=== PATIENT | female | born 2000 | race Caucasian/White ===

== ENCOUNTER → 2019-07-12 | Outpatient (CLI) | payer BC | END | disposition home or self-care (01) | LOC: LABWHC1 09:16 | PROVIDERS: ATTEND Obstetrics & Gynecology | DX: O20.0 Threatened abortion (principal) | CPT/HCPCS: 36415; 84702; 86850; 86900; 86901 ==

== ENCOUNTER → 2019-07-14 | Outpatient (CLI) | payer BC | END | disposition home or self-care (01) | LOC: LABWHC1 10:01 | PROVIDERS: ATTEND Obstetrics & Gynecology | DX: O20.0 Threatened abortion (principal) | CPT/HCPCS: 36415; 84702 ==

== ENCOUNTER 2019-07-15 21:59 | Emergency (ER) | payer BC ==
[2019-07-15 22:11] VITALS: RESP 18; TEMP 98
[2019-07-15] MEDS ORDERED: ACETAMINOPHEN TAB 500 MG TAB PO STA (22:38)
[2019-07-15 23:16] LABS: Basophils # (A) 0.1 k/uL (0-0.2); Basophils % (A) 0 %; Eosinophils # (A) 0.3 k/uL (0-0.7); Eosinophils % (A) 2 %; HCT 40.9 % (34.0-46.0); HGB 13.6 gm/dL (11.4-16.0); Lymphocytes # (A) 2.7 k/uL (1.0-4.8); Lymphocytes % (A) 17 %; MCHC 33.2 g/dL (31.0-37.0); MCV 93.1 fL (80.0-100.0); Mean Platelet Volume 6.7; Monocytes # (A) 0.6 k/uL (0-1.0); Monocytes % (A) 3 %; Neutrophils # (A) 12.2 k/uL (1.3-7.7); Neutrophils % (A) 76 %; Platelet Count 286 k/uL (150-450); RBC 4.39 m/uL (3.80-5.40); RDW 12.8 % (11.5-15.5)
[2019-07-15 23:25] LABS: ALT 17 U/L (4-34); AST 24 U/L (14-36); African American GFR (CKD) >90 (>60 ml/min/1.73 sqM); Albumin 4.4 g/dL (3.5-5.0); Alkaline Phosphatase 48 U/L (38-126); Anion Gap 8 mmol/L; Blood Urea Nitrogen 14 mg/dL (7-17); Calcium 9.3 mg/dL (8.4-10.2); Carbon Dioxide 20 mmol/L (22-30); Chloride 109 mmol/L (98-107); Glucose 96 mg/dL (74-99); Non-African American GFR(CKD) >90 (>60 ml/min/1.73 sqM); Sodium 137 mmol/L (137-145); Total Bilirubin 0.2 mg/dL (0.2-1.3); Total Protein 7.2 g/dL (6.3-8.2)
[2019-07-15 23:41] LABS: HCG,Quantitative Serum 3339.1 mIU/mL
[2019-07-16 00:03] LABS: Amorphous Sediment,Urine Rare /hpf; Appearance,Urine Turbid (Clear); Bilirubin,Urine Negative (Negative); Blood,Urine Large (Negative); Color,Urine Light Red; Glucose,Urine (UA) Negative (Negative); Ketones,Urine Negative (Negative); Leukocyte Esterase,Urine Trace (Negative); Mucus,Urine Rare /hpf; Nitrite,Urine Negative (Negative); PH, Urine 6.5 (5.0-8.0); Protein,Urine 1+ (Negative); RBC,Urine >182 /hpf (0-5); Specific Gravity,Urine 1.022 (1.001-1.035); Squamous Epithelial Cell,Urine 2 /hpf (0-4); Urobilinogen,Urine <2.0 mg/dL (<2.0); WBC,Urine 37 /hpf (0-5)
--- NOTE | 2019-07-16 00:04 | US ---
EXAMINATION TYPE: Transabdominal DATE OF EXAM: 07/15/2019 11:50 PM COMPARISON: NONE CLINICAL HISTORY: Pelvic pain. Heavy bleeding, passing clots. Had ultrasound at another facility and was told there was no heartbeat. Difficult exam due to patient pain and large amount of peristalsing bowel EXAM PERFORMED: Transvaginal (TV) and Transabdominal (TA) EXAM MEASUREMENTS: GESTATIONAL AGE / DATING Physician Established: Not yet established Dates by LMP: (7 weeks/6 days) EDC: 02/25/2020 Dates by First Scan: No previous this is first scan ( Dates by Current Scan for: No IUP seen at this time MATERNAL ANATOMY Uterus: 8.4 x 4.8 x 5.8 cm Right Ovary: 3.4 x 2.2 x 1.9 cm Left Ovary: 2.1 x 1.2 x 1.0 cm Post CDS / Adnexa: Small amount of free fluid visualized Presence of free fluid: Yes Presence of corpus luteal cyst: Not visualized on this exam GESTATION / SURVEY IUP: No IUP seen at this time Date of LMP: 05/21/2019 Beta HcG (if available): 07/15/2019: 3339 HcG was 9150 on 07/12/2019 No IUP visualized on this exam. Thickened and complex endometrium measuring 2.0 cm with some vascular ity visualized within. Anechoic area visualized within cervix measuring 0.5 cm IMPRESSION: No evidence of intrauterine or extrauterine gestational sac. No adnexal mass. Small cervical cyst. Th ickened endometrium could relate to incomplete .
--- NOTE | 2019-07-16 00:55 | ED ---
General Adult HPI - General Source: patient, RN notes reviewed Mode of arrival: ambulatory <Gianni Ivey - Last Filed: 07/16/19 01:00> <Heather Brasher - Last Filed: 07/17/19 01:00> - General Chief complaint: Vaginal Bleeding Stated complaint: 7 wks , bleeding Time Seen by Provider: 07/15/19 22:11 - History of Present Illness Initial comments: 19-year-old female currently reportedly about 7 weeks presents to the emergency department for a chief complaint of vaginal bleeding. Patient states that she has had some spotting over the past week and did have an ultrasound at her [facility]. She states there was no heartbeat at that could've been from an early ultrasound. Patient states today the bleeding worsened. States she soaked 2 pads. States she has slight cramping but no serious pain. States that she is establishing with Dr. Bloom and saw her nurse but has not actually seen Dr. Bloom as of yet. Patient has no other complaints at this time including shortness of breath, chest pain, abdominal pain, nausea or vomiting, headache, or visual changes. (Gianni Ivey) - Related Data Home Medications Medication Instructions Recorded Confirmed Acetaminophen Tab [Tylenol Tab] 325 mg PO Q6H PRN 07/03/14 07/05/14 Previous Rx's Medication Instructions Recorded Clindamycin HCl [Cleocin] 300 mg PO Q8H #30 cap 07/05/14 Hydrocodone/Acetaminophen [Adolphus 1 - 2 each PO Q6HR PRN #40 tab 07/05/14 5-325] predniSONE [Deltasone] 20 mg PO DAILY #7 tab 07/05/14 Allergies Allergy/AdvReac Type Severity Reaction Status Date / Time amoxicillin Allergy Rash/Hives Verified 07/05/14 08:05 levofloxacin [From Levaquin] Allergy FELT LIKE Verified 07/05/14 08:05 TENDONS WOULD SNAP-SEVERE PAIN sulfamethoxazole Allergy Rash/Hives Verified 07/05/14 08:05 [From Bactrim] trimethoprim [From Bactrim] Allergy Rash/Hives Verified 07/05/14 08:05 Review of Systems ROS Other: All systems not noted in ROS Statement are negative. <Gianni Ivey - Last Filed: 07/16/19 01:00> ROS Other: All systems not noted in ROS Statement are negative. <Heather Brasher A - Last Filed: 07/17/19 01:00> ROS Statement: Those systems with pertinent positive or pertinent negative responses have been documented in the HPI. Past Medical History Past Medical History: Skin Disorder Additional Past Medical History / Comment(s): PT HAS HX MIGRAINES BUT DR. HERNANDEZ. TRYING TO DETERMINE IF HEADACHES ARE SINUS RELATED- HX CHRONIC SINUSITIS, HX ECZEMA - PATCH OFF & ON ARM & LEG History of Any Multi-Drug Resistant Organisms: None Reported Past Surgical History: Tonsillectomy Additional Past Surgical History / Comment(s): EGD @ AGE 3 TO LOOK FOR CLEO SHE SWALLOWED Past Anesthesia/Blood Transfusion Reactions: Motion Sickness Additional Past Anesthesia/Blood Transfusion Reaction / Comment(s): OCCASIONAL MOTION SICKNESS- ONCE ON BOAT AND A FEW TIMES IN CAR WITH LONGER DRIVING DISTANCE Past Psychological History: No Psychological Hx Reported Smoking Status: Current every day smoker Past Alcohol Use History: Occasional Past Drug Use History: Marijuana <Gianni Ivey - Last Filed: 07/16/19 01:00> General Exam General appearance: alert, in no apparent distress Head exam: Present: atraumatic, normocephalic, normal inspection Eye exam: Present: normal appearance, PERRL, EOMI. Absent: scleral icterus, conjunctival injection, periorbital swelling ENT exam: Present: normal exam, mucous membranes moist Neck exam: Present: normal inspection, full ROM. Absent: tenderness, meningismus, lymphadenopathy Respiratory exam: Present: normal lung sounds bilaterally. Absent: respiratory distress, wheezes, rales, rhonchi, stridor Cardiovascular Exam: Present: regular rate, normal rhythm, normal heart sounds. Absent: systolic murmur, diastolic murmur, rubs, gallop, clicks GI/Abdominal exam: Present: soft, normal bowel sounds. Absent: distended, tenderness, guarding, rebound, rigid External exam: Present: normal external exam. Absent: erythema, swelling, lesions, lacerations, ecchymosis Speculum exam: Present: vaginal bleeding, tissue (I was able to remove some ti ssue in the vaginal vault). Absent: normal speculum exam, erythema, vaginal discharge, cervical discharge, foreign body, laceration By manual exam: Absent: cervical motion tenderness, adnexal tenderness, adnexal mass, uterine enlargement, uterine tenderness Neurological exam: Present: alert <Gianni Ivey - Last Filed: 07/16/19 01:00> Course Vital Signs 07/15/19 07/16/19 22:04 01:20 Temperature 98 F Pulse Rate 109 H 74 Respiratory 18 18 Rate Blood Pressure 131/95 112/72 O2 Sat by Pulse 98 100 Oximetry Medical Decision Making - Lab Data Result diagrams: 07/15/19 23:09 07/15/19 23:09 <Gianni Ivey - Last Filed: 07/16/19 01:00> - Lab Data Result diagrams: 07/15/19 23:09 07/15/19 23:09 <AnshuHeather Vidal - Last Filed: 07/17/19 01:00> - Medical Decision Making Vitals are stable. Patient was very anxious on arrival which is likely the cause of her initial tachycardia. His exam did reveal mild vaginal bleeding with some tissue in the vaginal vault that was removed. Abdomen is nontender. CBC did show a white blood cell count of 16.0. CMP unremarkable. Urinalysis shows 182 red blood cells. White blood cells are likely related to red blood cells. Obstetrics ultrasound shows no evidence of intrauterine or extrauterine gestational sac. No adnexal mass. Small cervical cyst. Thickened endometrium could relate to incomplete . Patient states she had an ultrasound about a week ago that did show an intrauterine however no heartbeat. Therefore this is highly consistent with a miscarriage. HCG today is 3300. Ye sterday was 6000. 2 days prior to that was 9000. Blood type is A-, patient was given RhoGAM. On reevaluation patient is much better and bleeding has slowed. I discussed that this is likely a miscarriage however she needs to follow up with [facility] to ensure that her hCG trends to 0 as well as to a she has a completely . At this time patient was given a prescription to repeat blood work in 2 days and follow-up with her [facility]. Discussed returning if she has any worsening symptoms. (Gianni Ivey) I was available for consultation in the emergency department. The history and physical exam were done by the midlevel provider. I was consulted for this patients care. I reviewed the case with the midlevel provider and based on their presentation of the patient, I agree with the assessment, medical decision making and plan of care as documented. Chart was dictated using [employer] dictation software. Attempts were made to correct any dictation errors however some typographical errors may persist. The patient was seen during the [facility] due to the Covid-19 pandemic. (Heather Brasher) - Lab Data Lab Results 07/15/19 07/15/19 07/15/19 Range/Units 23:09 23:09 23:09 WBC 16.0 H (4.0-11.0) k/uL RBC 4.39 (3.80-5.40) m/uL Hgb 13.6 (11.4-16.0) gm/dL Hct 40.9 (34.0-46.0) % MCV 93.1 (80.0-100.0) fL MCH 31.0 (25.0-35.0) pg MCHC 33.2 (31.0-37.0) g/dL RDW 12.8 (11.5-15.5) % Plt Count 286 (150-450) k/uL Neutrophils % 76 % Lymphocytes % 17 % Monocytes % 3 % Eosinophils % 2 % Basophils % 0 % Neutrophils # 12.2 H (1.3-7.7) k/uL Lymphocytes # 2.7 (1.0-4.8) k/uL Monocytes # 0.6 (0-1.0) k/uL Eosinophils # 0.3 (0-0.7) k/uL Basophils # 0.1 (0-0.2) k/uL Sodium 137 (137-145) mmol/L Potassium 4.0 (3.5-5.1) mmol/L Chloride 109 H (98-107) mmol/L Carbon Dioxide 20 L (22-30) mmol/L Anion Gap 8 mmol/L BUN 14 (7-17) mg/dL Creatinine 0.79 (0.52-1.04) mg/dL Est GFR (CKD-EPI)AfAm >90 (>60 ml/min/1.73 sqM) Est GFR (CKD-EPI)NonAf >90 (>60 ml/min/1.73 sqM) Glucose 96 (74-99) mg/dL Calcium 9.3 (8.4-10.2) mg/dL Total Bilirubin 0.2 (0.2-1.3) mg/dL AST 24 (14-36) U/L ALT 17 (4-34) U/L Alkaline Phosphatase 48 (38-126) U/L Total Protein 7.2 (6.3-8.2) g/dL Albumin 4.4 (3.5-5.0) g/dL HCG, Quant 3339.1 mIU/mL Urine Color Urine Appearance (Clear) Urine pH (5.0-8.0) Ur Specific Caldwell (1.001-1.035) Urine Protein (Negative) Urine Glucose (UA) (Negative) Urine Ketones (Negative) Urine Blood (Negative) Urine Nitrite (Negative) Urine Bilirubin (Negative) Urine Urobilinogen (<2.0) mg/dL Ur Leukocyte Esterase (Negative) Urine RBC (0-5) /hpf Urine WBC (0-5) /hpf Ur Squamous Epith Cells (0-4) /hpf Amorphous Sediment (None) /hpf Urine Mucus (None) /hpf Blood Type A Negative Blood Type Recheck A Neg Bld Type Recheck Status No Antibody Screen NEGATIVE Spec Expiration Date 07/18/2019 - 230807/15/19 Range/Units 23:13 WBC (4.0-11.0) k/uL RBC (3.80-5.40) m/uL Hgb (11.4-16.0) gm/dL Hct (34.0-46.0) % MCV (80.0-100.0) fL MCH (25.0-35.0) pg MCHC (31.0-37.0) g/dL RDW (11.5-15.5) % Plt Count (150-450) k/uL Neutrophils % % Lymphocytes % % Monocytes % % Eosinophils % % Basophils % % Neutrophils # (1.3-7.7) k/uL Lymphocytes # (1.0-4.8) k/uL Monocytes # (0-1.0) k/uL Eosinophils # (0-0.7) k/uL Basophils # (0-0.2) k/uL Sodium (137-145) mmol/L Potassium (3.5-5.1) mmol/L Chloride (98-107) mmol/L Carbon Dioxide (22-30) mmol/L Anion Gap mmol/L BUN (7-17) mg/dL Creatinine (0.52-1.04) mg/dL Est GFR (CKD-EPI)AfAm (>60 ml/min/1.73 sqM) Est GFR (CKD-EPI)NonAf (>60 ml/min/1.73 sqM) Glucose (74-99) mg/dL Calcium (8.4-10.2) mg/dL Total Bilirubin (0.2-1.3) mg/dL AST (14-36) U/L ALT (4-34) U/L Alkaline Phosphatase (38-126) U/L Total Protein (6.3-8.2) g/dL Albumin (3.5-5.0) g/dL HCG, Quant mIU/mL Urine Color Light Red Urine Appearance Turbid H (Clear) Urine pH 6.5 (5.0-8.0) Ur Specific [place]dwell 1.022 (1.001-1.035) Urine Protein 1+ H (Negative) Urine Glucose (UA) Negative (Negative) Urine Ketones Negative (Negative) Urine Blood Large H (Negative) Urine Nitrite Negative (Negative) Urine Bilirubin Negative (Negative) Urine Urobilinogen <2.0 (<2.0) mg/dL Ur Leukocyte Esterase Trace H (Negative) Urine RBC >182 H (0-5) /hpf Urine WBC 37 H (0-5) /hpf Ur Squamous Epith Cells 2 (0-4) /hpf Amorphous Sediment Rare H (None) /hpf Urine Mucus Rare H (None) /hpf Blood Type Blood Type Recheck Bld Type Recheck Status Antibody Screen Spec Expiration Date Disposition Is patient prescribed a controlled substance at d/c from ED?: No Time of Disposition: 01:08 <Gianni Ivey P - Last Filed: 07/16/19 01:00> <Heather Brasher - Last Filed: 07/17/19 01:00> Clinical Impression: Incomplete miscarriage Disposition: HOME SELF-CARE Condition: Good Instructions (If sedation given, give patient instructions): Miscarriage (ED) Additional Instructions: Please repeat hCG in 2 days. It is important to follow up with [facility] to ensure hCG trends down to 0. Return to the emergency room if you have any worsening symptoms. Referrals: Lisa Bloom MD [STAFF PHYSICIAN] - 1-2 days
[2019-07-16] MEDS ORDERED: Rhogam IMMUNE GLOBULIN 1,500 UNIT/1 ML IM ONE (00:57)
[2019-07-16 01:21] VITALS: BP 112/72; PULSE 74
== END 2019-07-16 01:42 | disposition home or self-care (01) ==
LOC: EC 21:59
DX: O03.4 Incomplete spontaneous abortion without complication (principal); O34.41 Maternal care for other abnormalities of cervix, first trimester; N88.8 Other specified noninflammatory disorders of cervix uteri; O99.331 Smoking (tobacco) complicating pregnancy, first trimester; F17.200 Nicotine dependence, unspecified, uncomplicated; Z3A.01 Less than 8 weeks gestation of pregnancy; Z88.1 Allergy status to other antibiotic agents; Z88.2 Allergy status to sulfonamides
CPT/HCPCS: 36415; 86900; 86901; 80053; 85025; 86850; 81001; 84702; 87086; 76801; 76817; 99284; 96372; J2791

== ENCOUNTER → 2019-07-21 | Outpatient (CLI) | payer BC | END | disposition home or self-care (01) | LOC: LABWHC1 09:04 | PROVIDERS: ATTEND Obstetrics & Gynecology | DX: O02.1 Missed abortion (principal) | CPT/HCPCS: 36415; 84702 ==

== ENCOUNTER → 2019-08-01 | Outpatient (CLI) | payer BC | END | disposition home or self-care (01) | LOC: LABWHC1 11:29 | PROVIDERS: ATTEND Obstetrics & Gynecology | DX: O03.9 Complete or unspecified spontaneous abortion without complication (principal) | CPT/HCPCS: 36415; 84702 ==

== ENCOUNTER 2020-08-07 06:15 | Inpatient (IN) | payer BC, OTHER ==
[2020-08-14] MEDS ORDERED: METHYLERGONOVINE 0.2 MG/ML 1 ML AMP IM PRN (06:25)
[2020-08-14] MEDS ORDERED: LIDOCAINE 0.5% (PF) 5 MG/ML (50 ML SDV) SQ PRN (06:25)
[2020-08-14] MEDS ORDERED: TERBUTALINE 1 MG/ML VIAL SQ PRN (06:25)
[2020-08-14] MEDS ORDERED: CARBOPROST TROMETHAMINE 250 MCG/ML 1 ML AMP IM PRN (06:25)
[2020-08-14] MEDS ORDERED: OXYTOCIN 10 UNIT/ML 1 ML VIAL IM PRN (06:25)
[2020-08-14] MEDS ORDERED: OXYTOCIN 30 UNITS/500 ML NS 30 UNIT in SALINE 1 500ML.BAG IV SCH (06:30)
[2020-08-14] MEDS: LACTATED RINGERS 1,000 ML IV SCH ×3 (06:39→14:41)
[2020-08-14 06:41] LABS: Basophils # (A) 0.1 k/uL (0-0.2); Basophils % (A) 1 %; Eosinophils # (A) 0.2 k/uL (0-0.7); Eosinophils % (A) 1 %; HCT 39.2 % (34.0-46.0); HGB 13.7 gm/dL (11.4-16.0); Lymphocytes # (A) 2.3 k/uL (1.0-4.8); Lymphocytes % (A) 13 %; MCH 31.2 pg (25.0-35.0); MCV 89.3 fL (80.0-100.0); Mean Platelet Volume 7.3; Monocytes # (A) 0.7 k/uL (0-1.0); Monocytes % (A) 4 %; Neutrophils # (A) 14.2 k/uL (1.3-7.7); Neutrophils % (A) 81 %; Platelet Count 287 k/uL (150-450); RBC 4.39 m/uL (3.80-5.40); RDW 13.4 % (11.5-15.5); WBC 17.6 k/uL (3.8-10.6)
--- NOTE | 2020-08-14 07:50 | P.HPOB ---
History of Present Illness H&P Date: 08/14/20 Chief Complaint: Here for induction of labor This is a 20-year-old white female 2 para 0010 EDC 08/14/2020 at 40 weeks gestation. Patient presents today for induction of labor, she is having rare mild irregular uterine contractions. Fetus is been active throughout the . She denies fluid leakage or vaginal bleeding. Past medical history significant for asthma. Past surgical history deviated septum repair, tonsillectomy. Current medications vitamins daily, Zofran 4 mg when necessary. ALLERGIES include amoxicillin, Bactrim, Levaquin, penicillins. Family history significant for colitis. Social history patient is single, father of the baby is present and involved. She is a former labor, denies tobacco alcohol or drug use. history is significant for blood type A-, rubella status immune. VDRL testing, urine culture, hepatitis B surface antigen, HIV testing, gonorrhea and chlamydia cultures, group B strep cultures all negative. On exam patient is 5 foot 7 inches, 185 pounds, blood pressure 123/84. Vital signs are stable she is afebrile. Chest is clear in all talley. Extremities reveal no edema. heart rate is consistent with reactive NST. Cervix is 4 cm dilated, 80% effaced, -2 station, vertex presentation. Artificial amniorrhexis reveals clear fluid. Impression: 40 week intrauterine , here for induction of labor, all signs reassuring. Plan: Oxytocin per hospital protocol. Analgesic options reviewed with the patient. Close maternal surveillance. Anticipate normal spontaneous vagi nal delivery. Review of Systems Constitutional: Reports as per HPI Past Medical History Past Medical History: Asthma, Skin Disorder Additional Past Medical History / Comment(s): Migraines History of Any Multi-Drug Resistant Organisms: None Reported Past Surgical History: Tonsillectomy Additional Past Surgical History / Comment(s): Deviated septum Past Anesthesia/Blood Transfusion Reactions: No Reported Reaction Additional Past Anesthesia/Blood Transfusion Reaction / Comment(s): OCCASIONAL MOTION SICKNESS- ONCE ON BOAT AND A FEW TIMES IN CAR WITH LONGER DRIVING DIS TANCE Past Psychological History: No Psychological Hx Reported Smoking Status: Never smoker - Past Family History Mother Family Medical History: No Reported History Medications and Allergies Home Medications Medication Instructions Recorded Confirmed Type Acetaminophen Tab [Tylenol Tab] 325 mg PO Q6H PRN 07/03/14 07/05/14 History Pnv,Calcium 72/Iron/Folic Acid 1 tab PO DAILY 08/14/20 08/14/20 History [ Plus Tablet] Allergies Allergy/AdvReac Type Severity Reaction Status Date / Time amoxicillin Allergy Rash/Hives Verified 08/14/20 06:20 levofloxacin [From Levaquin] Allergy FELT LIKE Verified 08/14/20 06:21 TENDONS WOULD SNAP-SEVERE PAIN Penicillins Allergy Rash/Hives Verified 08/14/20 06:20 sulfamethoxazole Allergy Unknown Verified 08/14/20 06:20 [From Bactrim] trimethoprim [From Bactrim] Allergy Unknown Verified 08/14/20 06:21 Exam Vital Signs Temp Pulse Resp BP Pulse Ox 08/14/20 06:17 96.0 F L 110 H 18 123/84 97 Intake and Output 08/13/20 08/14/20 08/14/20 22:59 06:59 14:59 Other: Weight 83.915 kg See dictation under HPI please Results Result Diagrams: 08/14/20 06:23 Abnormal Lab Results - Last 24 Hours (Table) 08/14/20 Range/Units 06:23 WBC 17.6 H (3.8-10.6) k/uL Neutrophils # 14.2 H (1.3-7.7) k/uL Assessment and Plan Assessment: 40 week intrauterine , here for induction of labor. All signs reassuring. Plan: Oxytocin per hospital protocol. Close maternal and surveillance. Analgesic options reviewed spontaneous vaginal delivery. Time with Patient: Less than 30
[2020-08-14] MEDS ORDERED: BUTORPHANOL 1 MG/ML 1 ML VIAL IV PRN (08:52)
[2020-08-14] MEDS ORDERED: fentaNYL (PF) 50 MCG/ML 5 ML AMP ONE (09:13)
[2020-08-14] MEDS ORDERED: BUPIVACAINE (PF) 0.25% 30 ML VIAL ONE (09:13)
[2020-08-14] MEDS ORDERED: SODIUM CHLORIDE 0.9% 100 ML BAG ONE (09:13)
[2020-08-14] MEDS ORDERED: ROPIVACAINE 100 MG, fentaNYL (PF). 200 MCG in SODIUM CHLORIDE 0.9% 76 ML EPIDURAL ONE (10:54)
[2020-08-14] MEDS ORDERED: BENZOCAINE/MENTHOL SPRAY 1 GM/SPRAY AEROSOL TOPICAL PRN (15:40)
[2020-08-14] MEDS ORDERED: LANOLIN CREAM 5 GM TUBE TOPICAL PRN (15:40)
[2020-08-14] MEDS ORDERED: HYDROCORTISONE 2.5% RECTAL CREAM 30 GM TUBE RECTAL PRN (15:40)
[2020-08-14] MEDS ORDERED: ZOLPIDEM 5 MG TAB PO PRN (15:40)
[2020-08-14] MEDS ORDERED: diphenhydrAMINE 50 MG CAP PO PRN (15:40)
[2020-08-14] MEDS ORDERED: SIMETHICONE 80 MG CHEWABLE PO PRN (15:40)
[2020-08-14] MEDS ORDERED: diphenhydrAMINE 25 MG CAP PO PRN (15:40)
[2020-08-14] MEDS ORDERED: ACETAMINOPHEN TAB 325 MG TAB PO PRN (15:40)
[2020-08-14] MEDS ORDERED: diphenhydrAMINE 50 MG/ML 1 ML VIAL IVP PRN ×2 (15:40)
[2020-08-14] MEDS ORDERED: diphenhydrAMINE ELIXIR 25 MG/10 ML CUP PO PRN (15:40)
--- NOTE | 2020-08-14 15:40 | P.PROBDLV ---
Vaginal Delivery Note - . Vaginal Delivery Note: This is a 20-year-old white female 2 para 0010 EDC 08/14/2020 at 40 weeks gestation. Patient presented this morning with favorable cervix for induction of labor. Blood type A-, rubella status immune, group B strep cultures negative. Please see dictated history and physical for details. Artificial amniorrhexis revealed clear fluid. Oxytocin was started and titrated per hospital protocol. Epidural was placed per her request. She was judged be completely dilated at 1325 hrs. and began the second stage of labor at that time. With excellent maternal efforts, ultimately the infant's vertex progressed in the station. The perineal body was prepped and draped in usual sterile fashion. 's head delivered occiput anterior, and she restituted accordingly. There was no nuchal cord noted. The left or anterior shoulder was delivered from underneath the pubic symphysis at which time the oropharynx, nasopharynx, and external nares were all bulb suctioned. Patient was officially delivered of a liveborn female at 1521 hrs. Umbilical cord was doubly clamped and ligated, she was handed to waiting nurses for evaluation where scores of 9 and 9 at one and 5 minutes respectively were given. Placenta delivered spontaneously, it was inspected and noted to be intact with trivascular cord at 1524 hrs. Uterus is then massaged. Careful inspection of the cervix, vagina, perineum, periurethral, and perirectal areas revealed a small first-degree perineal laceration at 6:00. This was repaired in the usual fashion using 3-0 repeat suture. Total estimated blood loss 250 mL's. weighed 7 lbs. 9 oz. or 34-5 g. Patient and her family are allowed to begin the bonding experience in the LDR.
[2020-08-14] MEDS: IBUPROFEN 600 MG TAB PO SCH ×2 (17:23→23:18)
[2020-08-14] MEDS ORDERED: Rhogam IMMUNE GLOBULIN 1,500 UNIT/1 ML IM ONE (21:05)
[2020-08-14] MEDS: SENNOSIDES-DOCUSATE SODIUM 1 EACH TAB PO SCH (21:12)
[2020-08-14 22:17] VITALS: RESP 16
[2020-08-15] MEDS: IBUPROFEN 600 MG TAB PO SCH ×2 (05:03→10:56)
--- NOTE | 2020-08-15 08:29 | P.DS ---
Providers Date of admission: 08/14/20 06:07 Expected date of discharge: 08/15/20 Attending physician: Lisa Bloom Primary care physician: Stated None Hospital Course: This is a 20-year-old female 12 para 0010 EDC 08/14/2020 who presented at 40 weeks gestation with a favorable cervix for induction. is remarkable for group strep cultures negative, blood type A-, rubella status immune. Please see my dictated history and physical for details. Artificial amniorrhexis revealed clear fluid. Oxytocin was started and titrated per hospital protocol. Epidural was placed per her request. She went on to deliver vaginally a liveborn female with scores of 9 and 9 at one and 5 minutes respectively. Infant weighed 34-5 g or 7 lbs. 9 oz. There was a small first-degree perineal laceration easily repaired, estimated blood loss 250 mL's. Please see my dictated delivery note for details. This morning the patient is doing well. She is voiding, ambulating, passing flatus without difficulty. Vital signs are stable and she is afebrile. Fundus is firm and in the midline, symmetric and 18 week size. Breast-feeding is going well. I have given her prescription for a double electric breast pump. We have reviewed options for contraception and we will discuss this further in the office. Patient is in very good condition for discharge home. I have reminded her no intercourse, tampons or douching. She will use [id number] Advil or Aleve, or Motrin as needed for pain. She will call with any fevers shakes or chills, foul smelling or copious lochia, with the passage of large blood clots, with any pain not alleviated by [id number] products, or indeed with any concerns. Assessment: Doing well day #1 Patient Condition at Discharge: Good Plan - Discharge Summary Discharge Rx Participant: No New Discharge Prescriptions: No Action Acetaminophen Tab [Tylenol Tab] 325 mg PO Q6H PRN PRN Reason: Pain Pnv,Calcium 72/Iron/Folic Acid [ Plus Tablet] 1 tab PO DAILY Discharge Medication List Acetaminophen Tab [Tylenol Tab] 325 mg PO Q6H PRN 07/03/14 [History] Pnv,Calcium 72/Iron/Folic Acid [ Plus Tablet] 1 tab PO DAILY 05/26/21 [History] Follow up Appointment(s)/Referral(s): Lisa Bloom MD [STAFF PHYSICIAN] - 6 Weeks Discharge Disposition: HOME SELF-CARE
[2020-08-15] MEDS: SENNOSIDES-DOCUSATE SODIUM 1 EACH TAB PO SCH (08:40)
[2020-08-15 16:02] VITALS: BP 112/75; PULSE 87; TEMP 98
== END 2020-08-15 16:30 | disposition home or self-care (01) | DRG 807 ==
LOC: 4FBP 08-14 06:07
PROVIDERS: ADMIT Obstetrics & Gynecology; ATTEND Obstetrics & Gynecology
PROC: 10E0XZZ Delivery of Products of Conception, External Approach (ICD-10-PCS; principal; 2020-08-14)
PROC: 0HQ9XZZ Repair Perineum Skin, External Approach (ICD-10-PCS; 2020-08-14)
DX: O70.0 First degree perineal laceration during delivery (principal); Z37.0 Single live birth; O99.52 Diseases of the respiratory system complicating childbirth; J45.909 Unspecified asthma, uncomplicated; Z3A.40 40 weeks gestation of pregnancy
CPT/HCPCS: 85025; 85461; 86850; 86870; 86880; 86900; 86901

== ENCOUNTER 2021-04-14 13:16 | Emergency (ER) | payer BC, OTHER ==
[2021-04-14 13:46] VITALS: BP 104/77; PULSE 107; RESP 18; TEMP 98.6
[2021-04-14] MEDS ORDERED: SODIUM CHLORIDE 0.9% 1,000 ML IV STA (14:13)
[2021-04-14] MEDS ORDERED: ONDANSETRON 4 MG/2 ML VIAL IVP STA (14:13)
--- NOTE | 2021-04-14 14:20 | ED ---
General Adult HPI - General Chief complaint: Nausea/Vomiting/Diarrhea Stated complaint: newly preg, dizzy, nause/vomiting Time Seen by Provider: 04/14/21 13:48 Source: patient Mode of arrival: ambulatory Limitations: no limitations - History of Present Illness Initial comments: 23-year-old female with a LMP the beginning of last month presents to the emergency room for a chief complaint of nausea vomiting. Patient states this started about 5 days ago. Patient states that when she vomits she has some upper abdominal pain but otherwise no upper abdominal pain. Patient denies any lower abdominal pain or vaginal bleeding. Patient states she feels that she is dehydrated and fluids would help. She would also like some nausea medication.Patient has no other complaints at this time including shortness of breath, chest pain, abdominal pain, headache, or visual changes. - Related Data Home Medications Medication Instructions Recorded Confirmed Sertraline [Zoloft] 50 mg PO DAILY 04/14/21 04/14/21 lamoTRIgine [LaMICtal] 50 mg PO HS 04/14/21 04/14/21 Previous Rx's Medication Instructions Recorded Doxylamine Succinate [Unisom] 25 mg PO HS #20 tablet 04/14/21 Pyridoxine HCl (Vitamin B6) 25 mg PO HS #20 tablet 04/14/21 [Pyridoxine HCl] Allergies Allergy/AdvReac Type Severity Reaction Status Date / Time amoxicillin Allergy Rash/Hives Verified 04/14/21 14:29 Penicillins Allergy Rash/Hives Verified 04/14/21 14:29 sulfamethoxazole Allergy Unknown Verified 04/14/21 14:29 [From Bactrim] trimethoprim [From Bactrim] Allergy Unknown Verified 04/14/21 14:29 levofloxacin [From Levaquin] AdvReac FELT LIKE Verified 04/14/21 14:29 TENDONS WOULD SNAP-SEVERE PAIN Review of Systems ROS Statement: Those systems with pertinent positive or pertinent negative responses have been documented in the HPI. ROS Other: All systems not noted in ROS Statement are negative. Past Medical History Past Medical History: Asthma, Skin Disorder Additional Past Medical History / Comment(s): Migraines History of Any Multi-Drug Resistant Organisms: None Reported Past Surgical History: Tonsillectomy Additional Past Surgical History / Comment(s): Deviated septum Past Anesthesia/Blood Transfusion Reactions: No Reported Reaction Additional Past Anesthesia/Blood Transfusion Reaction / Comment(s): OCCASIONAL MOTION SICKNESS- ONCE ON BOAT AND A FEW TIMES IN CAR WITH LONGER DRIVING DISTANCE Past Psychological History: No Psychological Hx Reported Smoking Status: Never smoker Past Alcohol Use History: None Reported Past Drug Use History: None Reported - Past Family History Mother Family Medical History: No Reported History General Exam Limitations: no limitations General appearance: alert, in no apparent distress Head exam: Present: atraumatic Eye exam: Present: normal appearance, PERRL, EOMI. Absent: scleral icterus, conjunctival injection ENT exam: Present: normal exam, mucous membranes moist Neck exam: Present: normal inspection, full ROM. Absent: tenderness Respiratory exam: Present: normal lung sounds bilaterally. Absent: respiratory distress, wheezes Cardiovascular Exam: Present: regular rate, normal rhythm, normal heart sounds GI/Abdominal exam: Present: soft, normal bowel sounds. Absent: distended, tenderness, guarding, rebound, rigid Course Vital Signs 04/14/21 13:42 Temperature 98.6 F Pulse Rate 107 H Respiratory 18 Rate Blood Pressure 104/77 O2 Sat by Pulse 98 Oximetry Medical Decision Making - Medical Decision Making Vitals are stable. CBC CMP unremarkable. Urinalysis shows possible urinary tract infection. Given recommendations to treat him symptomatically bacteria and patient will be treated with Keflex. Patient was given a liter of fluid and nausea medication. Much better. She will return here for any worsening symptoms. Follow up with her COMM[facility] OUTREACH SPECIALIST. - Lab Data Result diagrams: 04/14/21 14:32 04/14/21 14:32 Lab Results 04/14/21 04/14/21 04/14/21 Range/Units 14:32 14:32 14:32 WBC 10.7 H (3.8-10.6) k/uL RBC 4.58 (3.80-5.40) m/uL Hgb 14.0 (11.4-16.0) gm/dL Hct 41.1 (34.0-46.0) % MCV 89.8 (80.0-100.0) fL MCH 30.7 (25.0-35.0) pg MCHC 34.1 (31.0-37.0) g/dL RDW 12.3 (11.5-15.5) % Plt Count 293 (150-450) k/uL MPV 7.1 Neutrophils % 78 % Lymphocytes % 16 % Monocytes % 3 % Eosinophils % 2 % Basophils % 0 % Neutrophils # 8.4 H (1.3-7.7) k/uL Lymphocytes # 1.7 (1.0-4.8) k/uL Monocytes # 0.3 (0-1.0) k/uL Eosinophils # 0.2 (0-0.7) k/uL Basophils # 0.1 (0-0.2) k/uL Sodium (137-145) mmol/L Potassium (3.5-5.1) mmol/L Chloride (98-107) mmol/L Carbon Dioxide (22-30) mmol/L Anion Gap mmol/L BUN (7-17) mg/dL Creatinine (0.52-1.04) mg/dL Est GFR (CKD-EPI)AfAm (>60 ml/min/1.73 sqM) Est GFR (CKD-EPI)NonAf (>60 ml/min/1.73 sqM) Glucose (74-99) mg/dL Calcium (8.4-10.2) mg/dL Total Bilirubin (0.2-1.3) mg/dL AST (14-36) U/L ALT (4-34) U/L Alkaline Phosphatase (38-126) U/L Total Protein (6.3-8.2) g/dL Albumin (3.5-5.0) g/dL Lipase (23-300) U/L Urine Color Yellow Urine Appearance Turbid H (Clear) Urine pH 7.0 (5.0-8.0) Ur Specific [place] 1.023 (1.001-1.035) Urine Protein Trace H (Negative) Urine Glucose (UA) Negative (Negative) Urine Ketones 1+ H (Negative) Urine Blood Negative (Negative) Urine Nitrite Negative (Negative) Urine Bilirubin Negative (Negative) Urine Urobilinogen <2.0 (<2.0) mg/dL Ur Leukocyte Esterase Moderate H (Negative) Urine RBC 1 (0-5) /hpf Urine WBC 9 H (0-5) /hpf Ur Squamous Epith Cells 4 (0-4) /hpf Amorphous Sediment Rare H (None) /hpf Urine Bacteria Rare H (None) /hpf Urine Mucus Rare H (None) /hpf Urine HCG, Qual Detected (Not Detectd) 04/14/21 Range/Units 14:32 WBC (3.8-10.6) k/uL RBC (3.80-5.40) m/uL Hgb (11.4-16.0) gm/dL Hct (34.0-46.0) % MCV (80.0-100.0) fL MCH (25.0-35.0) pg MCHC (31.0-37.0) g/dL RDW (11.5-15.5) % Plt Count (150-450) k/uL MPV Neutrophils % % Lymphocytes % % Monocytes % % Eosinophils % % Basophils % % Neutrophils # (1.3-7.7) k/uL Lymphocytes # (1.0-4.8) k/uL Monocytes # (0-1.0) k/uL Eosinophils # (0-0.7) k/uL Basophils # (0-0.2) k/uL Sodium 138 (137-145) mmol/L Potassium 3.9 (3.5-5.1) mmol/L Chloride 110 H (98-107) mmol/L Carbon Dioxide 18 L (22-30) mmol/L Anion Gap 10 mmol/L BUN 9 (7-17) mg/dL Creatinine 0.67 (0.52-1.04) mg/dL Est GFR (CKD-EPI)AfAm >90 (>60 ml/min/1.73 sqM) Est GFR (CKD-EPI)NonAf >90 (>60 ml/min/1.73 sqM) Glucose 103 H (74-99) mg/dL Calcium 9.4 (8.4-10.2) mg/dL Total Bilirubin 0.4 (0.2-1.3) mg/dL AST 20 (14-36) U/L ALT 15 (4-34) U/L Alkaline Phosphatase 73 (38-126) U/L Total Protein 7.2 (6.3-8.2) g/dL Albumin 4.5 (3.5-5.0) g/dL Lipase 56 (23-300) U/L Urine Color Urine Appearance (Clear) Urine pH (5.0-8.0) Ur Specific [place] (1.001-1.035) Urine Protein (Negative) Urine Glucose (UA) (Negative) Urine Ketones (Negative) Urine Blood (Negative) Urine Nitrite (Negative) Urine Bilirubin (Negative) Urine Urobilinogen (<2.0) mg/dL Ur Leukocyte Esterase (Negative) Urine RBC (0-5) /hpf Urine WBC (0-5) /hpf Ur Squamous Epith Cells (0-4) /hpf Amorphous Sediment (None) /hpf Urine Bacteria (None) /hpf Urine Mucus (None) /hpf Urine HCG, Qual (Not Detectd) Disposition Clinical Impression: Nausea/vomiting in Disposition: HOME SELF-CARE Condition: Good Instructions (If sedation given, give patient instructions): Nausea and Vomiting in (ED) Additional Instructions: Take medications as directed. Follow-up with your doctor. Return to the em ergency room for any worsening symptoms. Prescriptions: Pyridoxine HCl (Vitamin B6) [Pyridoxine HCl] 25 mg PO HS #20 tablet Doxylamine Succinate [Unisom] 25 mg PO HS #20 tablet Is patient prescribed a controlled substance at d/c from ED?: No Referrals: Diana Turner DO [Primary Care Provider] - 1-2 days Time of Disposition: 15:03
[2021-04-14 14:40] LABS: Basophils # (A) 0.1 k/uL (0-0.2); Basophils % (A) 0 %; Eosinophils # (A) 0.2 k/uL (0-0.7); Eosinophils % (A) 2 %; HCT 41.1 % (34.0-46.0); Lymphocytes # (A) 1.7 k/uL (1.0-4.8); Lymphocytes % (A) 16 %; MCH 30.7 pg (25.0-35.0); MCHC 34.1 g/dL (31.0-37.0); MCV 89.8 fL (80.0-100.0); Mean Platelet Volume 7.1; Monocytes # (A) 0.3 k/uL (0-1.0); Monocytes % (A) 3 %; Neutrophils # (A) 8.4 k/uL (1.3-7.7); Neutrophils % (A) 78 %; Platelet Count 293 k/uL (150-450); RBC 4.58 m/uL (3.80-5.40); RDW 12.3 % (11.5-15.5); WBC 10.7 k/uL (3.8-10.6)
[2021-04-14 14:49] LABS: ALT 15 U/L (4-34); AST 20 U/L (14-36); African American GFR (CKD) >90 (>60 ml/min/1.73 sqM); Albumin 4.5 g/dL (3.5-5.0); Alkaline Phosphatase 73 U/L (38-126); Anion Gap 10 mmol/L; Blood Urea Nitrogen 9 mg/dL (7-17); Calcium 9.4 mg/dL (8.4-10.2); Carbon Dioxide 18 mmol/L (22-30); Chloride 110 mmol/L (98-107); Glucose 103 mg/dL (74-99); Lipase 56 U/L (23-300); Non-African American GFR(CKD) >90 (>60 ml/min/1.73 sqM); Potassium 3.9 mmol/L (3.5-5.1); Sodium 138 mmol/L (137-145); Total Bilirubin 0.4 mg/dL (0.2-1.3); Total Protein 7.2 g/dL (6.3-8.2)
[2021-04-14 14:59] LABS: Amorphous Sediment,Urine Rare /hpf; Appearance,Urine Turbid (Clear); Bacteria,Urine Rare /hpf; Bilirubin,Urine Negative (Negative); Blood,Urine Negative (Negative); Color,Urine Yellow; Glucose,Urine (UA) Negative (Negative); Ketones,Urine 1+ (Negative); Leukocyte Esterase,Urine Moderate (Negative); Mucus,Urine Rare /hpf; Nitrite,Urine Negative (Negative); Protein,Urine Trace (Negative); RBC,Urine 1 /hpf (0-5); Specific Gravity,Urine 1.023 (1.001-1.035); Squamous Epithelial Cell,Urine 4 /hpf (0-4); Urobilinogen,Urine <2.0 mg/dL (<2.0); WBC,Urine 9 /hpf (0-5)
== END 2021-04-14 15:41 | disposition home or self-care (01) ==
LOC: EC 13:16
DX: O21.9 Vomiting of pregnancy, unspecified (principal); Z88.0 Allergy status to penicillin; Z88.2 Allergy status to sulfonamides; Z88.1 Allergy status to other antibiotic agents; J45.909 Unspecified asthma, uncomplicated
CPT/HCPCS: 36415; 80053; 83690; 85025; 81001; 81025; 99284; 96374; 96361; J2405

== ENCOUNTER → 2022-05-28 | Outpatient (CLI) | payer BC, OTHER ==
[2022-05-28 20:13] VITALS: BP 121/77; PULSE 113; RESP 15; TEMP 98.3
--- NOTE | 2022-07-12 10:13 | P.MSEPDOC ---
Presenting Problems - Arrival Data Date of Arrival on Unit: 05/28/22 Time of Arrival on Unit: 18:48 Mode of Transport: Ambulatory - Complaint OB-Reason for Admission/Chief Complaint: Possible Onset of Labor Comment: Patient presents to triage with contractions that started this am around 0500,. states that they were inconsistent today later today. Patient states before arrival they. were about every 6 minutes in frequency. Patient states she saw Dr. Bloom in the office. today and she was 4cm/50%. Patient denies leaking of fluid or vaginal bleeding. Denies. intercourse in the last 24 hours. Patient states since arrival to the unit she is. feeling better. Medical History - Information : 3 Para: 1 Term: 1 Number of Living Children: 1 - Gestational Age Gestational Age by ROBERT (wks/days): 38 Weeks and 3 Days - History Comment: Possible SGA ultrasound today in Dr. Lester office showed baby to be weighing approx 7 lbs per patient. Review of Systems - Review of Systems Constitutional: No problems Breast: No problems ENT: No problems Cardiovascular: No problems Respiratory: No problems Gastrointestinal: No problems Genitourinary: No problems Musculoskeletal: No problems Neurological: No problems Skin: No problems Vital Signs - Temperature Temperature: 98.3 F Temperature Source: Oral - Pulse Pulse Oximetery Pulse Rate: 113 Pulse Assessment Method: Pulse Oximetry - Respirations Respiratory Rate: 15 Oxygen Delivery Method: Room Air O2 Sat by Pulse Oximetry: 98 - Blood Pressure Right Arm Blood Pressure: 121/77 Blood Pressure Mean: 91 Blood Pressure Source: Automatic Cuff Medical Screen Scoring - Cervical Exam Dilation (cm): 3 Effacement (%): 50 Station: -2 Membranes: Intact - Assessment - Baby A Baseline FHR: 130 Heart Rate - NICHD Category: Category I (Normal) NST: Reactive Physician Notification - Physician Notified Physician Notified Date: 05/28/22 Physician Notified Time: 19:38 Physician: Adia Xie New Order Received: Yes - Notification Comment Comment: Dr. Xie aware of patient hx, FHR cat I, NO contractions, cervical check in. Dr. Lester office of on 05/28/2022, RN checked cervix today in triage /-2. Patient is not bradley per toco/per patient, denies pain. Dr. Xie is discharging. patient on pelvic rest tonight, shower and rest. Maternal Triage Index - Non-Urgent/Priority 4 Non-Urgent Priority 4: Yes Criteria Met for Priority 4: Patient presents to triage with contractions that started this am around 0500,. states that they were inconsistent today later today. Patient states before arrival they. were about every 6 minutes in frequency. Patient states she saw Dr. Bloom in the office. today and she was 4cm/50%. Patient denies leaking of fluid or vaginal bleeding. Denies. intercourse in the last 24 hours. Patient states since arrival to the unit she is. feeling better. Disposition - Disposition OB Disposition: Discharge to home Discharge Date: 05/28/22 Discharge Time: 19:40 I agree with the RN Medical Screening Exam: Yes Case reviewed; plan agreed upon as documented in EMR&OBIX.: Yes Diagnosis: FALSE LABOR AT OR AFTER 37 COMPLETED WEEKS OF GESTATION
== END ==
LOC: FBPOP 18:37
PROVIDERS: ATTEND Obstetrics & Gynecology Obstetrics
DX: O47.1 False labor at or after 37 completed weeks of gestation (principal); O99.333 Smoking (tobacco) complicating pregnancy, third trimester; Z3A.38 38 weeks gestation of pregnancy; Z88.0 Allergy status to penicillin; Z88.2 Allergy status to sulfonamides; Z88.1 Allergy status to other antibiotic agents; F17.200 Nicotine dependence, unspecified, uncomplicated
CPT/HCPCS: 59025; 99213

== ENCOUNTER 2023-07-07 12:50 | Emergency (ER) | payer BC, OTHER ==
--- NOTE | 2023-07-07 13:03 | ED ---
General Adult HPI - General Source: patient, RN notes reviewed Mode of arrival: ambulatory Limitations: no limitations <Charlotte Truong - Last Filed: 07/07/23 13:04> - General Source: patient, RN notes reviewed, old records reviewed <Davis Turner - Last Filed: 07/07/23 14:11> - General Stated complaint: Abd Pain Time Seen by Provider: 07/07/23 13:03 - History of Present Illness Initial comments: Quick Note: 23 year old female presenting to the ER with a chief complaint of urinary frequency and dysuria. This been going on for about a week. Denies any fevers but does report recent chills. (Charlotte Truong) Patient is a 23-year-old female presents emergency department complaining of urinary complaints. Originally seen as a quick note. States she has bilateral flank pain with suprapubic pain. Dysuria as well. Increased urinary frequency. Denies any vaginal discharge or bleeding. Denies . Denies nausea or vomiting. Denies any diarrhea or constipation. Has no other acute complaints at this time. Presents for further evaluation at this time over concern for urinary infection. Symptoms have been ongoing for approximately 1 week. (Davis Turner) - Related Data Home Medications Medication Instructions Recorded Confirmed Vit No.179/Iron/Folic 1 tablet PO DAILY 05/28/22 05/29/22 [ Tablet] Previous Rx's Medication Instructions Recorded Nitrofurantoin Monohyd/M-Cryst 100 mg PO Q12HR 7 Days #14 cap 07/07/23 [Macrobid] Allergies Allergy/AdvReac Type Severity Reaction Status Date / Time amoxicillin Allergy Rash/Hives Verified 07/07/23 13:03 Penicillins Allergy Rash/Hives Verified 07/07/23 13:03 sulfamethoxazole Allergy Unknown Verified 07/07/23 13:03 [From Bactrim] trimethoprim [From Bactrim] Allergy Unknown Verified 07/07/23 13:03 levofloxacin [From Levaquin] AdvReac FELT LIKE Verified 07/07/23 13:03 TENDONS WOULD SNAP-SEVERE PAIN Review of Systems ROS Other: All systems not noted in ROS Statement are negative. <Charlotte Truong - Last Filed: 07/07/23 13:04> ROS Other: All systems not noted in ROS Statement are negative. <Davis Turner - Last Filed: 07/07/23 14:11> ROS Statement: Those systems with pertinent positive or pertinent negative responses have been documented in the HPI. Review of Systems: CONST: Denies fever EYES: Denies blurry vision ENT: Denies nasal congestion C/V: Denies Chest pain RESP: Denies shortness of breath GI: Endorses abdominal pain : Denies dysuria SKIN: Denies rash. MSK: Denies joint pain. NEURO: Denies headache (Davis Turner) Past Medical History Past Medical History: Asthma, Skin Disorder Additional Past Medical History / Comment(s): Migraines History of Any Multi-Drug Resistant Organisms: None Reported Past Surgical History: Tonsillectomy Additional Past Surgical History / Comment(s): Deviated septum Past Anesthesia/Blood Transfusion Reactions: No Reported Reaction Additional Past Anesthesia/Blood Transfusion Reaction / Comment(s): OCCASIONAL MOTION SICKNESS- ONCE ON BOAT AND A FEW TIMES IN CAR WITH LONGER DRIVING DISTANCE Past Psychological History: ADD/ADHD, Bipolar Smoking Status: Never smoker, Vaper Past Alcohol Use History: Rare Past Drug Use History: None Reported, Marijuana - Past Family History Mother Family Medical History: No Reported History <Charlotte Truong - Last Filed: 07/07/23 13:04> General Exam Limitations: no limitations <Charlotte Truong - Last Filed: 07/07/23 13:04> <Davis Turner - Last Filed: 07/07/23 14:11> - General Exam Comments Initial Comments: Visual Physical Exam Vital signs reviewed General: Well-appearing, nontoxic, no acute distress. Head: Normocephalic, atraumatic Eyes: PERRLA, EOMI ENT: Airway patent Chest: Nonlabored breathing Skin: No visual rash, normal skin tone Neuro: Alert and oriented 3 Musculoskeletal: No gross abnormalities (Charlotte Truong) General: Appears in no acute distress. HEAD: Normal with no signs of head trauma. EYES: EOMI ENT: Hearing grossly intact, normal oropharynx. RESPIRATORY: Clear breath sounds bilaterally. No wheezes, rales, or rhonchi. C/V: Regular rate and rhythm. S1 and S2 auscultated, ABD: Abdomen soft, nondistended. Minimally tender to palpation in the suprapubic region. No CVA tenderness to percussion. No guarding. No rebound tenderness. No peritoneal signs. EXT: Normal range of motion, no obvious deformity SKIN: No rashes or lesions observed on exposed skin. NEURO: Alert and oriented x 4. (Davis Turner) Course Vital Signs 07/07/23 12:59 Temperature 99.2 F Pulse Rate 104 H Respiratory 18 Rate Blood Pressure 119/7 O2 Sat by Pulse 97 Oximetry Medical Decision Making <Charlotte Truong - Last Filed: 07/07/23 13:04> - Lab Data Result diagrams: 07/07/23 13:25 07/07/23 13:25 <Davis Turner - Last Filed: 07/07/23 14:11> - Medical Decision Making I performed the quick note portion of this chart. Electronically signed by Charlotte Truong PA-C (Charlotte Truong) Was pt. sent in by a medical professional or institution ([facility] Cole, FREIGHT RECEIVER, urgent care, hospital, or half-way...) When possible be specific @ -No Did you speak to anyone other than the patient for history (EMS, parent, family, police, friend...)? What history was obtained from this source @ -No Did you review nursing and triage notes (agree or disagree)? Why? @ -I reviewed and agree with nursing and triage notes Were old charts reviewed (outside hosp., previous admission, EMS record, old EKG, old radiological studies, urgent care reports/EKG's, half-way records)? Report findings @ -Old charts reviewed Differential Diagnosis (chest pain, altered mental status, abdominal pain women, abdominal pain men, vaginal bleeding, weakness, fever, dyspnea, syncope, headache, dizziness, GI bleed, back pain, seizure, CVA, palpatations, mental health, musculoskeletal)? @ -UTI, pyelonephritis, SUMEET. This list is not all inclusive. EKG interpreted by me (3pts min.). @ -None done X-rays interpreted by me (1pt min.). @ -None done CT interpreted by me (1pt min.). @ -None done U/S interpreted by me (1pt. min.). @ -None done What testing was considered but not performed or refused? (CT, X-rays, U/S, labs)? Why? @ -None What meds were considered but not given or refused? Why? @ -None Did you discuss the management of the patient with other professionals (professionals i.e. , PA, FREIGHT RECEIVER, lab, RT, psych nurse, social media specialist, elementary school art teacher, teacher, labor relations officer, production service manager)? Give summary @ -No Was smoking cessation discussed for >3mins.? @ -No Was critical care preformed (if so, how long)? @ -No Were there social determinants of health that impacted care today? How? (Homelessness, low income, unemployed, alcoholism, drug addiction, transportation, low edu. Level, literacy, decrease access to med. care, [facility], rehab)? @ -No Was there de-escalation of care discussed even if they declined (Discuss DNR or withdrawal of care, Hospice)? DNR status @ -No What co-morbidities impacted this encounter? (DM, HTN, Smoking, COPD, CAD, Cancer, CVA, ARF, Chemo, Hep., AIDS, mental health diagnosis, sleep apnea, morbid obesity)? @ -None Was patient admitted / discharged? Hospital course, mention meds given and route, prescriptions, significant lab abnormalities, going to OR and other pertinent info. @ -Patient presents with urinary symptoms. Likely UTI but cannot definitively rule out pyelonephritis. Patient is concerned for possible kidney infection therefore we will obtain basic labs in addition to urine studies. Patient was in agreement this plan. Vital signs within acceptable limits. Exam relatively unremarkable otherwise. Patient will be given Motrin for analgesia. Patient's laboratory studies returned remarkable for leukocytosis of 14. Patient does appear to have a UTI with white blood cells, bacteria present. Minimal blood is present at all. I discussed results with the patient. Diagnosis is UTI. She will be started on Macrobid. Patient was in agreement this plan. Strict return precautions discussed. I will provide the patient with a prescription for Macrobid. I instructed the patient to follow up with their PCP in the next 1-3 days.. I explained that the patient should return to the emergency department if they experience any worsening symptoms. Strict return precautions were discussed with the patient. The patient expressed understanding of these instructions. I answered all questions that the patient had. The patient was discharged home in good condition with their prescriptions and follow up information. Undiagnosed new problem with uncertain prognosis? @ -No Drug Therapy requiring intensive monitoring for toxicity (Heparin, Nitro, Insulin, Cardizem)? @ -No Were any procedures done? @ -No Diagnosis/symptom? @ -UTI Acute, or Chronic, or Acute on Chronic? @ -Acute Uncomplicated (without systemic symptoms) or Complicated (systemic symptoms)? @ -Complicated Side effects of treatment? @ -None Exacerbation, Progression, or Severe Exacerbation] @ -No Poses a threat to life or bodily function? @ -Unlikely (Davis Turner) - Lab Data Lab Results 07/07/23 07/07/23 07/07/23 Range/Units 13:06 13:06 13:25 WBC 14.1 H (3.8-10.6) k/uL RBC 4.45 (3.80-5.40) m/uL Hgb 12.9 (11.4-16.0) gm/dL Hct 39.1 (34.0-46.0) % MCV 87.9 (80.0-100.0) fL MCH 28.9 (25.0-35.0) pg MCHC 32.9 (31.0-37.0) g/dL RDW 13.1 (11.5-15.5) % Plt Count 345 (150-450) k/uL MPV 7.2 Neutrophils % 77 % Lymphocytes % 14 % Monocytes % 5 % Eosinophils % 2 % Basophils % 0 % Neutrophils # 10.9 H (1.3-7.7) k/uL Lymphocytes # 2.0 (1.0-4.8) k/uL Monocytes # 0.7 (0-1.0) k/uL Eosinophils # 0.3 (0-0.7) k/uL Basophils # 0.1 (0-0.2) k/uL Sodium (137-145) mmol/L Potassium (3.5-5.1) mmol/L Chloride (98-107) mmol/L Carbon Dioxide (22-30) mmol/L Anion Gap mmol/L BUN (7-17) mg/dL Creatinine (0.52-1.04) mg/dL Est GFR (CKD-EPI)AfAm (>60 ml/min/1.73 sqM) Est GFR (CKD-EPI)NonAf (>60 ml/min/1.73 sqM) Glucose (74-99) mg/dL Calcium (8.4-10.2) mg/dL Urine Color Colorless Urine Appearance Cloudy H (Clear) Urine pH 8.0 (5.0-8.0) Ur Specific [place] 1.013 (1.001-1.035) Urine Protein Trace H (Negative) Urine Glucose (UA) Negative (Negative) Urine Ketones Negative (Negative) Urine Blood Trace H (Negative) Urine Nitrite Negative (Negative) Urine Bilirubin Negative (Negative) Urine Urobilinogen <2.0 (<2.0) mg/dL Ur Leukocyte Esterase Large H (Negative) Urine RBC 16 H (0-5) /hpf Urine WBC >182 H (0-5) /hpf Urine WBC Clumps Few H (None) /hpf Ur Squamous Epith Cells 6 H (0-4) /hpf Urine Bacteria Few H (None) /hpf Urine Mucus Rare H (None) /hpf Urine HCG, Qual Not Detected (Not Detectd) 07/07/23 Range/Units 13:25 WBC (3.8-10.6) k/uL RBC (3.80-5.40) m/uL Hgb (11.4-16.0) gm/dL Hct (34.0-46.0) % MCV (80.0-100.0) fL MCH (25.0-35.0) pg MCHC (31.0-37.0) g/dL RDW (11.5-15.5) % Plt Count (150-450) k/uL MPV Neutrophils % % Lymphocytes % % Monocytes % % Eosinophils % % Basophils % % Neutrophils # (1.3-7.7) k/uL Lymphocytes # (1.0-4.8) k/uL Monocytes # (0-1.0) k/uL Eosinophils # (0-0.7) k/uL Basophils # (0-0.2) k/uL Sodium 138 (137-145) mmol/L Potassium 4.4 (3.5-5.1) mmol/L Chloride 110 H (98-107) mmol/L Carbon Dioxide 20 L (22-30) mmol/L Anion Gap 8 mmol/L BUN 6 L (7-17) mg/dL Creatinine 0.62 (0.52-1.04) mg/dL Est GFR (CKD-EPI)AfAm >90 (>60 ml/min/1.73 sqM) Est GFR (CKD-EPI)NonAf >90 (>60 ml/min/1.73 sqM) Glucose 113 H (74-99) mg/dL Calcium 8.8 (8.4-10.2) mg/dL Urine Color Urine Appearance (Clear) Urine pH (5.0-8.0) Ur Specific [place] (1.001-1.035) Urine Protein (Negative) Urine Glucose (UA) (Negative) Urine Ketones (Negative) Urine Blood (Negative) Urine Nitrite (Negative) Urine Bilirubin (Negative) Urine Urobilinogen (<2.0) mg/dL Ur Leukocyte Esterase (Negative) Urine RBC (0-5) /hpf Urine WBC (0-5) /hpf Urine WBC Clumps (None) /hpf Ur Squamous Epith Cells (0-4) /hpf Urine Bacteria (None) /hpf Urine Mucus (None) /hpf Urine HCG, Qual (Not Detectd) Disposition <Charlotte Truong - Last Filed: 07/07/23 13:04> Is patient prescribed a controlled substance at d/c from ED?: No Time of Disposition: 14:09 <Davis Turner - Last Filed: 07/07/23 14:11> Clinical Impression: UTI (urinary tract infection) Disposition: HOME SELF-CARE Condition: Good Instructions (If sedation given, give patient instructions): Urinary Tract Infection in Women (ED) Prescriptions: Nitrofurantoin Monohyd/M-Cryst [Macrobid] 100 mg PO Q12HR 7 Days #14 cap Referrals: Chloe Eduardo, PAC [Family Provider] - 1-2 days
[2023-07-07] MEDS: IBUPROFEN 400 MG TAB PO STA (13:19)
[2023-07-07 13:25] VITALS: RESP 18
[2023-07-07 13:37] LABS: Appearance,Urine Cloudy (Clear); Bacteria,Urine Few /hpf; Bilirubin,Urine Negative (Negative); Blood,Urine Trace (Negative); Color,Urine Colorless; Glucose,Urine (UA) Negative (Negative); Ketones,Urine Negative (Negative); Leukocyte Esterase,Urine Large (Negative); Mucus,Urine Rare /hpf; Nitrite,Urine Negative (Negative); Protein,Urine Trace (Negative); RBC,Urine 16 /hpf (0-5); Specific Gravity,Urine 1.013 (1.001-1.035); Squamous Epithelial Cell,Urine 6 /hpf (0-4); Urobilinogen,Urine <2.0 mg/dL (<2.0); WBC,Urine >182 /hpf (0-5)
[2023-07-07 13:44] LABS: Basophils # (A) 0.1 k/uL (0-0.2); Basophils % (A) 0 %; Eosinophils # (A) 0.3 k/uL (0-0.7); Eosinophils % (A) 2 %; HCT 39.1 % (34.0-46.0); HGB 12.9 gm/dL (11.4-16.0); Lymphocytes % (A) 14 %; MCH 28.9 pg (25.0-35.0); MCHC 32.9 g/dL (31.0-37.0); MCV 87.9 fL (80.0-100.0); Mean Platelet Volume 7.2; Monocytes # (A) 0.7 k/uL (0-1.0); Monocytes % (A) 5 %; Neutrophils # (A) 10.9 k/uL (1.3-7.7); Neutrophils % (A) 77 %; Platelet Count 345 k/uL (150-450); RBC 4.45 m/uL (3.80-5.40); RDW 13.1 % (11.5-15.5); WBC 14.1 k/uL (3.8-10.6)
[2023-07-07 13:57] LABS: African American GFR (CKD) >90 (>60 ml/min/1.73 sqM); Anion Gap 8 mmol/L; Blood Urea Nitrogen 6 mg/dL (7-17); Calcium 8.8 mg/dL (8.4-10.2); Carbon Dioxide 20 mmol/L (22-30); Chloride 110 mmol/L (98-107); Glucose 113 mg/dL (74-99); Non-African American GFR(CKD) >90 (>60 ml/min/1.73 sqM); Potassium 4.4 mmol/L (3.5-5.1); Sodium 138 mmol/L (137-145)
[2023-07-07] MEDS: NITROFURANTOIN MONOHYD/M-CRYST 100 MG CAP PO STA (14:25)
[2023-07-07 14:51] VITALS: BP 111/76; PULSE 88; TEMP 98
== END 2023-07-07 14:34 | disposition home or self-care (01) ==
LOC: EC 12:50
DX: N39.0 Urinary tract infection, site not specified (principal); F17.290 Nicotine dependence, other tobacco product, uncomplicated; Z88.0 Allergy status to penicillin; Z88.1 Allergy status to other antibiotic agents; Z88.2 Allergy status to sulfonamides; Z88.8 Allergy status to other drugs, medicaments and biological substances
CPT/HCPCS: 36415; 80048; 81001; 81025; 85025; 87086; 99284

== ENCOUNTER 2023-07-29 00:42 | Emergency (ER) | payer OTHER ==
[2023-07-29 00:54] LABS: Glucose,Whole Blood 110 mg/dL (70-110)
[2023-07-29 00:56] VITALS: RESP 18; TEMP 98.3
[2023-07-29] MEDS: SODIUM CHLORIDE 0.9% 1,000 ML IV STA (01:22)
[2023-07-29 01:26] LABS: Basophils # (A) 0.1 k/uL (0-0.2); Basophils % (A) 1 %; Eosinophils # (A) 0.4 k/uL (0-0.7); Eosinophils % (A) 4 %; HCT 36.4 % (34.0-46.0); HGB 12.4 gm/dL (11.4-16.0); Lymphocytes # (A) 3.6 k/uL (1.0-4.8); Lymphocytes % (A) 40 %; MCH 30.3 pg (25.0-35.0); MCHC 34.1 g/dL (31.0-37.0); MCV 88.9 fL (80.0-100.0); Mean Platelet Volume 8.3; Monocytes # (A) 0.3 k/uL (0-1.0); Monocytes % (A) 4 %; Neutrophils # (A) 4.5 k/uL (1.3-7.7); Neutrophils % (A) 50 %; Platelet Count 292 k/uL (150-450); RBC 4.09 m/uL (3.80-5.40); RDW 13.6 % (11.5-15.5)
[2023-07-29 01:29] LABS: ALT 16 U/L (4-34); African American GFR (CKD) >90 (>60 ml/min/1.73 sqM); Albumin 4.2 g/dL (3.5-5.0); Alcohol <10 mg/dL; Anion Gap 8 mmol/L; Blood Urea Nitrogen 9 mg/dL (7-17); Calcium 8.8 mg/dL (8.4-10.2); Carbon Dioxide 24 mmol/L (22-30); Chloride 108 mmol/L (98-107); Creatine Kinase 280 U/L (30-135); Glucose 99 mg/dL (74-99); Non-African American GFR(CKD) >90 (>60 ml/min/1.73 sqM); Sodium 140 mmol/L (137-145); Total Bilirubin 0.5 mg/dL (0.2-1.3); Total Protein 7.2 g/dL (6.3-8.2)
[2023-07-29 01:41] LABS: Potassium 4.2 mmol/L (3.5-5.1)
[2023-07-29 01:42] LABS: AST 30 U/L (14-36); Alkaline Phosphatase 63 U/L (38-126); Magnesium 1.6 mg/dL (1.6-2.3)
--- NOTE | 2023-07-29 01:46 | CT ---
EXAM: CT Head Without Intravenous Contrast CLINICAL HISTORY: ITS.REASON CT Reason: seizure activity TECHNIQUE: Axial computed tomography images of the head/brain without intravenous contrast. CTDI is 49.2 mGy and DLP is 1154.2 mGy-cm. This CT exam was performed using one or more of the following dose reduction techniques: automated exposure control, adjustment of the mA and/or kV according to patient size, and/or use of iterative reconstruction technique. COMPARISON: No relevant prior studies available. FINDINGS: Brain: No hemorrhage or mass effect. Ventricles: No hydrocephalus. Bones/joints: Unremarkable. Soft tissues: Unremarkable. Sinuses: No air fluid level. Mastoid air cells: Clear. IMPRESSION: No acute hemorrhage, hydrocephalus, or mass effect.
[2023-07-29 01:50] LABS: Calcium Oxalate Crystals,Urine Occasional /hpf; Hyaline Casts,Urine 1 /lpf (0-2); Mucus,Urine Rare /hpf; RBC,Urine 1 /hpf (0-5); Squamous Epithelial Cell,Urine 4 /hpf (0-4); WBC,Urine 1 /hpf (0-5)
[2023-07-29 01:54] LABS: Appearance,Urine Clear (Clear); Bilirubin Confirmation, Urine Negative (Negative); Bilirubin,Urine Negative (Negative); Blood,Urine Small (Negative); Color,Urine Yellow; Glucose,Urine (UA) Negative (Negative); Ketones,Urine Negative (Negative); Nitrite,Urine Negative (Negative); PH, Urine 6.5 (5.0-8.0); Protein,Urine Trace (Negative); Specific Gravity,Urine 1.021 (1.001-1.035); Urobilinogen,Urine <2.0 mg/dL (<2.0)
[2023-07-29 01:55] LABS: Amphetamine Screen,Urine Not Detected (NotDetected); Barbiturate Screen,Urine Not Detected (NotDetected); Benzodiazepines Screen,Urine Not Detected (NotDetected); Cocaine Screen,Urine Not Detected (NotDetected); Leukocyte Esterase,Urine Small (Negative); Methadone Screen, Urine Not Detected (NotDetected); Opiate Screen,Urine Not Detected (NotDetected); Oxycodone Screen, Urine Not Detected (NotDetected); Phencyclidine Screen,Urine Not Detected (NotDetected); Tricyclic Antidepressant,Urine Not Detected (NotDetected); Urn Cannabinoid Scrn Detected (NotDetected)
--- NOTE | 2023-07-29 02:19 | ED ---
Seizure HPI - General Chief Complaint: Seizure Stated Complaint: Seizures Time Seen by Provider: 07/29/23 01:02 Source: patient, EMS Mode of arrival: EMS Limitations: no limitations - History of Present Illness Initial Comments: 23-year-old female presenting with chief complaint of seizure. Patient has no history of seizures. I am told that the patient's boyfriend was awoken by a loud sound and found her having what looked to be seizure-like activity. She was told that her eyes rolled in the back of her head and she was twitching. Her boyfriend told her that this lasted for 1 to 2 minutes. No loss of bowel or bladder control during this episode. Patient reports that she feels significantly better at this time. No headache, neck pain, chest pain, difficulty breathing, abdominal pain, nausea, vomiting, muscle soreness. - Related Data Home Medications Medication Instructions Recorded Confirmed Vit No.179/Iron/Folic 1 tablet PO DAILY 05/28/22 05/29/22 [ Tablet] Previous Rx's Medication Instructions Recorded Nitrofurantoin Monohyd/M-Cryst 100 mg PO Q12HR 7 Days #14 cap 07/07/23 [Macrobid] Allergies Allergy/AdvReac Type Severity Reaction Status Date / Time amoxicillin Allergy Rash/Hives Verified 07/07/23 13:03 Penicillins Allergy Rash/Hives Verified 07/07/23 13:03 sulfamethoxazole Allergy Unknown Verified 07/07/23 13:03 [From Bactrim] trimethoprim [From Bactrim] Allergy Unknown Verified 07/07/23 13:03 levofloxacin [From Levaquin] AdvReac FELT LIKE Verified 07/07/23 13:03 TENDONS WOULD SNAP-SEVERE PAIN Review of Systems ROS Statement: Those systems with pertinent positive or pertinent negative responses have been documented in the HPI. ROS Other: All systems not noted in ROS Statement are negative. Past Medical History Past Medical History: Asthma, Skin Disorder Additional Past Medical History / Comment(s): Migraines History of Any Multi-Drug Resistant Organisms: None Reported Past Surgical History: Tonsillectomy Additional Past Surgical History / Comment(s): Deviated septum Past Anesthesia/Blood Transfusion Reactions: No Reported Reaction Additional Past Anesthesia/Blood Transfusion Reaction / Comment(s): OCCASIONAL MOTION SICKNESS- ONCE ON BOAT AND A FEW TIMES IN CAR WITH LONGER DRIVING DISTANCE Past Psychological History: ADD/ADHD, Bipolar Smoking Status: Never smoker, Vaper Past Alcohol Use History: Rare Past Drug Use History: None Reported, Marijuana - Past Family History Mother Family Medical History: No Reported History General Exam Limitations: no limitations General appearance: alert, in no apparent distress Head exam: Present: atraumatic, normocephalic Eye exam: Present: normal appearance, PERRL, EOMI Pupils: Present: normal accommodation Neck exam: Present: normal inspection, full ROM. Absent: tenderness, meningismus Respiratory exam: Present: normal lung sounds bilaterally. Absent: respiratory distress, wheezes, rales, rhonchi, stridor Cardiovascular Exam: Present: regular rate, normal rhythm, normal heart sounds. Absent: systolic murmur, diastolic murmur, rubs, gallop, clicks Extremities exam: Present: normal inspection Neurological exam: Present: alert, oriented X3 Expanded Motor strength exam: RUE: 5, LUE: 5, RLE: 5, LLE: 5 Eye Response: (4) open spontaneously Motor Response: (6) obeys commands Verbal Response: (5) oriented [place] Total: 15 Psychiatric exam: Present: normal affect, normal mood Skin exam: Present: warm, dry Course Vital Signs 07/29/23 07/29/23 00:43 01:51 Temperature 98.3 F Pulse Rate 110 H 90 Respiratory 18 18 Rate Blood Pressure 122/97 104/74 O2 Sat by Pulse 98 100 Oximetry Medical Decision Making - Medical Decision Making EKG shows sinus rhythm ventricular rate 98. UT interval 180. QRS 113. QT 378. QTc 433. Was pt. sent in by a medical professional or institution (, PA, ADDICTION PROFESSIONAL, urgent care, hospital, or skilled nursing...) When possible be specific @ -No Did you speak to anyone other than the patient for history (EMS, parent, family, police, friend...)? What history was obtained from this source @ -EMS Did you review nursing and triage notes (agree or disagree)? Why? @ -I reviewed and agree with nursing and triage notes Were old charts reviewed (outside hosp., previous admission, EMS record, old EKG, old radiological studies, urgent care reports/EKG's, skilled nursing records)? Report findings @ -No old charts were reviewed Differential Diagnosis (chest pain, altered mental status, abdominal pain women, abdominal pain men, vaginal bleeding, weakness, fever, dyspnea, syncope, headache, dizziness, GI bleed, back pain, seizure, CVA, palpatations, mental health, musculoskeletal)? @ -MDM Differential Seizure: Recurrent seizure disorder, febrile seizure, alcohol withdrawal, stimulants, meningitis, encephalitis, intercranial hemorrhage, intracranial tumor, stroke, eclampsia, thyrotoxicosis, hypocalcemia, hyponatremia, hypernatremia, hypomagnesemia, psychogenic this is not meant to be an all-inclusive list EKG interpreted by me (3pts min.). @ -As above X-rays interpreted by me (1pt min.). @ -None done CT interpreted by me (1pt min.). @ -Brain CT shows no acute hemorrhage, hydrocephalus, or mass effect U/S interpreted by me (1pt. min.). @ -None done What testing was considered but not performed or refused? (CT, X-rays, U/S, labs)? Why? @ -None What meds were considered but not given or refused? Why? @ -None Did you discuss the management of the patient with other professionals (professionals i.e. , PA, ADDICTION PROFESSIONAL, lab, RT, psych nurse, social services coordinator, machine compositor, teacher, zoology technical officer, case worker)? Give summary @ -No Was smoking cessation discussed for >3mins.? @ -No Was critical care preformed (if so, how long)? @ -No Were there social determinants of health that impacted care today? How? (Homelessness, low income, unemployed, alcoholism, drug addiction, transportation, low edu. Level, literacy, decrease access to med. care, assisted, rehab)? @ -No Was there de-escalation of care discussed even if they declined (Discuss DNR or withdrawal of care, Hospice)? DNR status @ -No What co-morbidities impacted this encounter? (DM, HTN, Smoking, COPD, CAD, Cancer, CVA, ARF, Chemo, Hep., AIDS, mental health diagnosis, sleep apnea, morbid obesity)? @ -None Was patient admitted / discharged? Hospital course, mention meds given and route, prescriptions, significant lab abnormalities, going to OR and other pertinent info. @ -23-year-old female presenting after seizure-like activity. No history of seizures. From the time of my evaluation patient reports that she feels much better. Initially after the seizure-like activity she felt a bit "foggy". Focal neurological deficits. GCS was 15. No leukocytosis or anemia. Lactic acid WNL. Creatinine kinase 280, patient is receiving IV fluids. Shows no infectious process or bleeding. Negative hCG. Urine toxicology positive for THC. Is negative for acute intracranial process. On reassessment the patient is eager for discharge. She is educated on today's findings and provided with neurology follow-up. Discharged home. Follow-up with PCP. Report back to ER with any new or worsening symptoms. Discussed return parameters and answered all questions. Patient conveyed verbal understanding and agreed to the plan. I discussed this case in detail with my attending Dr. Loera Undiagnosed new problem with uncertain prognosis? @ -No Drug Therapy requiring intensive monitoring for toxicity (Heparin, Nitro, Insulin, Cardizem)? @ -No Were any procedures done? @ -No Diagnosis/symptom? @ -New onset seizure Acute, or Chronic, or Acute on Chronic? @ -Acute Uncomplicated (without systemic symptoms) or Complicated (systemic symptoms)? @ -Uncomplicated Side effects of treatment? @ -No Exacerbation, Progression, or Severe Exacerbation? @ -No Poses a threat to life or bodily function? How? (Chest pain, USA, GA, pneumonia, PE, COPD, DKA, ARF, appy, cholecystitis, CVA, Diverticulitis, Homicidal, Suicidal, threat to staff... and all critical care pts) @ -Low likelihood - Lab Data Result diagrams: 07/29/23 00:50 07/29/23 01:14 Lab Results 07/29/23 07/29/23 07/29/23 Range/Units 00:15 00:50 00:50 WBC 9.0 (3.8-10.6) k/uL RBC 4.09 (3.80-5.40) m/uL Hgb 12.4 (11.4-16.0) gm/dL Hct 36.4 (34.0-46.0) % MCV 88.9 (80.0-100.0) fL MCH 30.3 (25.0-35.0) pg MCHC 34.1 (31.0-37.0) g/dL RDW 13.6 (11.5-15.5) % Plt Count 292 (150-450) k/uL MPV 8.3 Neutrophils % 50 % Lymphocytes % 40 % Monocytes % 4 % Eosinophils % 4 % Basophils % 1 % Neutrophils # 4.5 (1.3-7.7) k/uL Lymphocytes # 3.6 (1.0-4.8) k/uL Monocytes # 0.3 (0-1.0) k/uL Eosinophils # 0.4 (0-0.7) k/uL Basophils # 0.1 (0-0.2) k/uL Sodium (137-145) mmol/L Potassium (3.5-5.1) mmol/L Chloride (98-107) mmol/L Carbon Dioxide (22-30) mmol/L Anion Gap mmol/L BUN (7-17) mg/dL Creatinine (0.52-1.04) mg/dL Est GFR (CKD-EPI)AfAm (>60 ml/min/1.73 sqM) Est GFR (CKD-EPI)NonAf (>60 ml/min/1.73 sqM) Glucose (74-99) mg/dL POC Glucose (mg/dL) (70-110) mg/dL POC Glu Manager Law ID Plasma Lactic Acid Lenin 1.5 (0.7-2.0) mmol/L Calcium (8.4-10.2) mg/dL Magnesium (1.6-2.3) mg/dL Total Bilirubin (0.2-1.3) mg/dL AST (14-36) U/L ALT (4-34) U/L Alkaline Phosphatase (38-126) U/L Creatine Kinase (30-135) U/L Total Protein (6.3-8.2) g/dL Albumin (3.5-5.0) g/dL Urine Color Urine Appearance (Clear) Urine pH (5.0-8.0) Ur Specific [place] (1.001-1.035) Urine Protein (Negative) Urine Glucose (UA) (Negative) Urine Ketones (Negative) Urine Blood (Negative) Urine Nitrite (Negative) Urine Bilirubin (Negative) Ur Bilirubin Confirm (Negative) Urine Urobilinogen (<2.0) mg/dL Ur Leukocyte Esterase (Negative) Urine RBC (0-5) /hpf Urine WBC (0-5) /hpf Ur Squamous Epith Cells (0-4) /hpf Calcium Oxalate Crystal (None) /hpf Hyaline Casts (0-2) /lpf Urine Mucus (None) /hpf Urine HCG, Qual Not Detected (Not Detectd) Urine Opiates Screen (NotDetected) Ur Oxycodone Screen (NotDetected) Urine Methadone Screen (NotDetected) Ur Barbiturates Screen (NotDetected) U Tricyclic Antidepress (NotDetected) Ur Phencyclidine Scrn (NotDetected) Ur Amphetamines Screen (NotDetected) U Methamphetamines Scrn (NotDetected) U Benzodiazepines Scrn (NotDetected) Urine Cocaine Screen (NotDetected) U Marijuana (THC) Screen (NotDetected) Serum Alcohol mg/dL 07/29/23 07/29/23 07/29/23 Range/Units 00:53 01:14 01:15 WBC (3.8-10.6) k/uL RBC (3.80-5.40) m/uL Hgb (11.4-16.0) gm/dL Hct (34.0-46.0) % MCV (80.0-100.0) fL MCH (25.0-35.0) pg MCHC (31.0-37.0) g/dL RDW (11.5-15.5) % Plt Count (150-450) k/uL MPV Neutrophils % % Lymphocytes % % Monocytes % % Eosinophils % % Basophils % % Neutrophils # (1.3-7.7) k/uL Lymphocytes # (1.0-4.8) k/uL Monocytes # (0-1.0) k/uL Eosinophils # (0-0.7) k/uL Basophils # (0-0.2) k/uL Sodium 140 (137-145) mmol/L Potassium 4.2 (3.5-5.1) mmol/L Chloride 108 H (98-107) mmol/L Carbon Dioxide 24 (22-30) mmol/L Anion Gap 8 mmol/L BUN 9 (7-17) mg/dL Creatinine 0.76 (0.52-1.04) mg/dL Est GFR (CKD-EPI)AfAm >90 (>60 ml/min/1.73 sqM) Est GFR (CKD-EPI)NonAf >90 (>60 ml/min/1.73 sqM) Glucose 99 (74-99) mg/dL POC Glucose (mg/dL) 110 (70-110) mg/dL POC Glu Manager Law ID Tate Burgess Plasma Lactic Acid Lenin (0.7-2.0) mmol/L Calcium 8.8 (8.4-10.2) mg/dL Magnesium 1.6 (1.6-2.3) mg/dL Total Bilirubin 0.5 (0.2-1.3) mg/dL AST 30 (14-36) U/L ALT 16 (4-34) U/L Alkaline Phosphatase 63 (38-126) U/L Creatine Kinase 280 H (30-135) U/L Total Protein 7.2 (6.3-8.2) g/dL Albumin 4.2 (3.5-5.0) g/dL Urine Color Yellow Urine Appearance Clear (Clear) Urine pH 6.5 (5.0-8.0) Ur Specific [place] 1.021 (1.001-1.035) Urine Protein Trace H (Negative) Urine Glucose (UA) Negative (Negative) Urine Ketones Negative (Negative) Urine Blood Small (Negative) Urine Nitrite Negative (Negative) Urine Bilirubin Negative (Negative) Ur Bilirubin Confirm Negative (Negative) Urine Urobilinogen <2.0 (<2.0) mg/dL Ur Leukocyte Esterase Small (Negative) Urine RBC 1 (0-5) /hpf Urine WBC 1 (0-5) /hpf Ur Squamous Epith Cells 4 (0-4) /hpf Calcium Oxalate Crystal Occasional H (None) /hpf Hyaline Casts 1 (0-2) /lpf Urine Mucus Rare H (None) /hpf Urine HCG, Qual (Not Detectd) Urine Opiates Screen Not Detected (NotDetected) Ur Oxycodone Screen Not Detected (NotDetected) Urine Methadone Screen Not Detected (NotDetected) Ur Barbiturates Screen Not Detected (NotDetected) U Tricyclic Antidepress Not Detected (NotDetected) Ur Phencyclidine Scrn Not Detected (NotDetected) Ur Amphetamines Screen Not Detected (NotDetected) U Methamphetamines Scrn Not Detected (NotDetected) U Benzodiazepines Scrn Not Detected (NotDetected) Urine Cocaine Screen Not Detected (NotDetected) U Marijuana (THC) Screen Detected H (NotDetected) Serum Alcohol <10 mg/dL Disposition Clinical Impression: New onset seizure Disposition: HOME SELF-CARE Condition: Good Instructions (If sedation given, give patient instructions): Seizure/Epilepsy Discharge Instructions & Follow-Up, New-Onset Seizure in Adults (ED) Additional Instructions: Follow-up with PCP and neurology. Report back to ER with any new or worsening symptoms. Is patient prescribed a controlled substance at d/c from ED?: No Referrals: Diana Turner DO [Primary Care Provider] - 1-2 days Shabbir Purvis MD [Medical Doctor] - 1-2 days Zechariah Terrell MD [STAFF PHYSICIAN] - 1-2 days Time of Disposition: 02:24
[2023-07-29 02:32] VITALS: BP 104/74; PULSE 90
== END 2023-07-29 02:30 | disposition home or self-care (01) ==
LOC: EC 00:42
DX: R56.9 Unspecified convulsions (principal); F17.290 Nicotine dependence, other tobacco product, uncomplicated; F12.90 Cannabis use, unspecified, uncomplicated; Z88.0 Allergy status to penicillin; Z88.2 Allergy status to sulfonamides; Z88.1 Allergy status to other antibiotic agents; Z88.8 Allergy status to other drugs, medicaments and biological substances
CPT/HCPCS: 36415; 93005; 80053; 82550; 83605; 83735; 85025; 81001; 81025; 80306; 70450; 99285; 96360; G0480; 80320